=== PATIENT | male | born 1980 | race Caucasian/White ===

== ENCOUNTER → 2020-10-16 | Outpatient (CLI) | payer OTHER ==
[~2020-10-16] MED LIST: FLEXERIL PO; NORCO5 PO; ZOCOR 10 MG TAB10 MG PO
== END ==
LOC: M.LAB 15:34
PROVIDERS: ATTEND Surgery
DX: Z01.812 Encounter for preprocedural laboratory examination (principal); Z20.822 Contact with and (suspected) exposure to COVID-19

== ENCOUNTER → 2020-10-19 | Day surgery (SDC) | payer OTHER ==
--- NOTE | ~2020-10-19 | OP ---
[facility] [address] [place] [address] OPERATIVE REPORT Name: OFE MCCAULEY Room: [facility].#: [id number] Admission: 10/19/20 Attend Phys: Travis Frederick Discharge: Date of : 80 Report #: [id number] THIS REPORT FOR: cc: Ross Velasquez Ghaison F. DO Patterson,Travis Farias MD ~ DATE OF SERVICE: 10/19/2020 PREOPERATIVE DIAGNOSIS: Left inguinal hernia. POSTOPERATIVE DIAGNOSIS: Left inguinal hernia. OPERATION: Laparoscopic repair of left inguinal hernia with mesh. SURGEON: Travis Frederick MD. ANESTHESIA: General. ESTIMATED BLOOD LOSS: Minimal. SPECIMEN: None. DESCRIPTION OF PROCEDURE: After informed consent was obtained, the patient was brought to the operating room and placed supine. SCDs were placed and working, preoperative antibiotics were administered, general anesthesia was induced. The abdomen was prepped and draped in the usual sterile fashion. A 1 mm incision was made in the left upper quadrant. A Veress needle was inserted and pneumoperitoneum was established. A left lower quadrant and right lower quadrant 5 mm trocars were placed. The patient was placed in Trendelenburg position. The peritoneum at the left ASIS was scored. Peritoneum was then incised and reflected inferiorly. Cord structures were fully identified. Epigastric vessels were identified. The pubic bone was identified. He had a moderate-sized direct inguinal hernia. The sac was fully reduced. I inserted a large Bard midway mesh. It was tacked to Sherwin's ligament with 2 absorbable tacks. I then reapproximated the peritoneum with a running V-Loc suture. The area was instilled with 10 mL of 0.5% Marcaine solution. The ports were removed under direct vision. The skin was closed with 4-0 Monocryl. Incisions were sealed with Steri-Strips. COMPLICATIONS: [place] [address] OPERATIVE REPORT Name: OEF MCCAULEY Room: [facility]#: [id number] Admission: 10/19/20 Attend Phys: Travis Frederick Discharge: Date of : 80 Report #: [id number] DISPOSITION: The patient was taken to recovery in satisfactory condition. By: [id number] Frederick MD /myriam
[2020-10-19 06:31] LABS: HEMATOCRIT 44.8 % (42.0-52.0); HEMOGLOBIN 15.3 gm/dL (14.0-18.0); MCH 32.6 pg (26.0-34.0); MCHC 34.2 g/dL (28.0-37.0); MCV 95.4 fL (80.0-100.0); MPV 6.6 fl. (7.2-11.1); RBC 4.7 mil/uL (4.50-6.00); RDW-CV 13.2 % (10.5-14.5); WBC 7.6 thou/uL (4.0-11.0)
[2020-10-19 06:35] LABS: CALCIUM 9.2 mg/dL (8.5-10.1); CREATININE 0.9 mg/dL (0.6-1.3); POTASSIUM 3.8 mmol/L (3.5-5.1)
== END | disposition home or self-care (01) ==
LOC: M.SUR
PROVIDERS: ATTEND Surgery
DX: K40.90 Unilateral inguinal hernia, without obstruction or gangrene, not specified as recurrent (principal); R10.9 Unspecified abdominal pain; E78.5 Hyperlipidemia, unspecified; Z98.890 Other specified postprocedural states; Z79.899 Other long term (current) drug therapy

== ENCOUNTER 2021-06-23 09:01 | Emergency (ER) | payer OTHER ==
[~2021-06-23] VITALS: Ht 188 cm; Wt 81.7 kg
[2021-06-23] MEDS ORDERED: INDERAL LA120 M1 PO (09:12)
[2021-06-23] MEDS ORDERED: ADDERALL 30 MG30 MG PO (09:12)
[2021-06-23] MEDS ORDERED: PREDNISONE 20 M20 M1 PO (09:32)
[2021-06-23] MEDS ORDERED: TRAMADOL 50 MG50 MG PO (09:32)
[2021-06-23 09:58] VITALS: BP 119/72
== END 2021-06-23 09:59 | disposition home or self-care (01) ==
LOC: M.ERS 09:01
DX: S46.912A Strain of unspecified muscle, fascia and tendon at shoulder and upper arm level, left arm, initial encounter (principal); E78.5 Hyperlipidemia, unspecified; I10 Essential (primary) hypertension; Z79.899 Other long term (current) drug therapy; X58.XXXA Exposure to other specified factors, initial encounter; Y93.89 Activity, other specified; Y92.89 Other specified places as the place of occurrence of the external cause; Y99.8 Other external cause status